=== PATIENT | female | born 1980 | race Caucasian/White ===

== ENCOUNTER 2017-08-16 12:49 | Emergency (ER) | payer MEDICAID ==
[~2017-08-16] VITALS: Ht 157.5 cm; Wt 64.5 kg
[~2017-08-16 12:49] MED LIST: ACET500C5 PO; BACTDS PO; CEPH-443 PO; HYDR-906 PO; HYDR25TA6 PO; IBUP-1542 PO
[2017-08-16 12:54] VITALS: Ht 157.5 cm; Wt 64.5 kg
[2017-08-16] MEDS ORDERED: ONDANSETRON (ODT) 4 MG TAB ODT STA (13:26)
[2017-08-16] MEDS ORDERED: LORAZEPAM 1 MG TAB PO ONE (14:00)
[2017-08-16] MEDS ORDERED: ONDA4TAB8 PO (14:34)
[2017-08-16] MEDS ORDERED: LISI10TA2 PO (14:37)
--- NOTE | 2017-08-16 14:41 | ERD ---
ER Documentation Chief Complaint Chief Complaint Complains of HTN HPI This is a 37 old female presents the emergency department today for concerns of high blood pressure, dizziness, heart palpitations, vomiting and diarrhea. Patient states this started this morning. States that in the past she took lisinopril when she was with her child as she had elevated blood pressure during . States that was in 2007 and has not taken pills for "a while". States that she took lisinopril at that time. Denies any chest pain or shortness of breath or abdominal pain, headache. ROS All systems reviewed and are negative except as per history of present illness. Medications Home Meds Active Scripts Lisinopril* (Lisinopril*) 10 Mg Tablet, 10 MG PO DAILY, #30 TAB Prov:BEE SMITH PA-C 08/16/17 Ondansetron Hcl* (Zofran*) 4 Mg Tablet, 4 MG PO Q6H for NAUSEA AND/OR VOMITING, #30 TAB Prov:BEE SMITH PA-C 08/16/17 Hydrochlorothiazide* (Hydrochlorothiazide*) 25 Mg Tab, 25 MG PO DAILY, #30 TAB Prov:CLARISA ARCHER MD 08/04/16 Cephalexin* (Keflex*) 500 Mg Capsule, 500 MG PO QID for 7 Days, CAP Prov:CLARISA ARCHER MD 08/04/16 Sulfamethoxazole-Trimethoprim* (Bactrim* DS) 800-160 Mg Tab, 1 TAB PO BID for 7 Days, TAB Prov:CLARISA ARCHER MD 08/04/16 Ibuprofen* (Motrin*) 600 Mg Tab, 600 MG PO Q8 for 10 Days, #30 TAB 0 Refills Prov:ZEN RIVERO PA-C 04/12/16 Hydrocodone Bit-Acetaminophen ([place]) 5-325 Mg Tablet, 1 TAB PO Q6 Y for PAIN for 7 Days, #7 TAB 0 Refills Prov:ZEN RIVERO PA-C 04/12/16 Acetaminophen* (Tylophen*) 500 Mg Capsule, 1 CAP PO Q6H Y for PAIN AND OR ELEVATED TEMP, #20 CAP Prov:GABI CERDA 08/04/15 Allergies Allergies: Coded Allergies: No Known Allergy (Unverified , 04/12/16) PMhx/Soc History of Surgery: Yes (C SECTION , APPENDECTOMY) Anesthesia Reaction: No Hx Neurological Disorder: No Hx Respiratory Disorders: No Hx Cardiac Disorders: Yes (HTN) Hx Psychiatric Problems: No Hx Miscellaneous Medical Probl: No Hx Alcohol Use: No Hx Substance Use: No Hx Tobacco Use: No Smoking Status: Never smoker Physical Exam Vitals Vital Signs Date Time Temp Pulse Resp B/P Pulse Ox O2 Delivery O2 Flow Rate FiO2 08/16/17 12:54 98.3 84 20 158/96 100 Physical Exam Const: NAD Head: Atraumatic Eyes: Normal Conjunctiva ENT: Normal External Ears, Nose and Mouth. Neck: Full range of motion..~ No meningismus. Resp: Clear to auscultation bilaterally Cardio: Regular rate and rhythm, no murmurs Abd: Soft, non tender, non distended. Normal bowel sounds Skin: No petechiae or rashes Back: No midline or flank tenderness Ext: No cyanosis, or edema Neur: Awake and alert Psych: Normal Mood and Affect Result Diagram: 08/16/17 1341 08/16/17 1341 Results 24 hrs Laboratory Tests Test 08/16/17 13:30 08/16/17 13:41 Urine Color YELLOW Urine Clarity SLIGHTLY CLOUDY Urine pH 9.0 Urine Specific [place] 1.014 Urine Ketones NEGATIVEmg/dL Urine Nitrite NEGATIVEmg/dL Urine Bilirubin NEGATIVEmg/dL Urine Urobilinogen NEGATIVEmg/dL Urine Leukocyte Esterase NEGATIVELeu/ul Urine Microscopic RBC 14/HPF Urine Microscopic WBC 3/HPF Urine Squamous Epithelial Cells FEW/HPF Urine Amorphous Crystals FEW/HPF Urine Hemoglobin 3+mg/dL Urine Glucose NEGATIVEmg/dL Urine Total Protein 1+mg/dl White Blood Count 7.910^3/ul Red Blood Count 4.7410^6/ul Hemoglobin 12.6g/dl Hematocrit 39.2% Mean Corpuscular Volume 82.7fl Mean Corpuscular Hemoglobin 26.6pg Mean Corpuscular Hemoglobin Concent 32.1g/dl Red Cell Distribution Width 12.9% Platelet Count 05772^3/UL Mean Platelet Volume 10.0fl Neutrophils % 76.2% Lymphocytes % 15.0% Monocytes % 7.3% Eosinophils % 0.9% Basophils % 0.3% Nucleated Red Blood Cells % 0.0/100WBC Neutrophils # 6.010^3/ul Lymphocytes # 1.210^3/ul Monocytes # 0.610^3/ul Eosinophils # 0.110^3/ul Basophils # 0.010^3/ul Nucleated Red Blood Cells # 0.010^3/ul Sodium Level 143mmol/L Potassium Level 4.1mmol/L Chloride Level 105mmol/L Carbon Dioxide Level 27mmol/L Anion Gap 15 Blood Urea Nitrogen 9mg/dl Creatinine 0.69mg/dl Glucose Level 99mg/dl Calcium Level 9.4mg/dl Total Bilirubin 0.8mg/dl Direct Bilirubin 0.00mg/dl Indirect Bilirubin 0.8mg/dl Aspartate Amino Transf (AST/SGOT) 27IU/L Alanine Aminotransferase (ALT/SGPT) 35IU/L Alkaline Phosphatase 74IU/L Total Protein 8.6g/dl Albumin 4.5g/dl Globulin 4.10g/dl Albumin/Globulin Ratio 1.09 Current Medications Medications (Trade) Dose Ordered Sig/Kendra Route PRN Reason Start Time Stop Time Status Last Admin Dose Admin Ondansetron HCl (Zofran Odt) 4 mg ONCE STAT ODT 08/16/17 13:26 08/16/17 13:28 DC 08/16/17 13:30 Lorazepam (Ativan) 1 mg ONCE ONCE PO 08/16/17 14:00 08/16/17 14:01 DC 08/16/17 13:49 Procedures/MDM This is a 37-year-old female who presents to the emergency department today with multiple complaints. Given patient's complaints and concerns I did obtain laboratory workup Laboratory workup shows no elevated white blood cell count. She is not anemic. Platelets are within normal limits. Electrolytes are within normal limits. Glucose is within normal limits. Liver enzymes are within normal limits. UA is negative for infection. test is negative. EKG read and interpreted by Dr. Drew. Rate [address] elevation. No QT prolongation. Sinus bradycardia. IPatient is afebrile and otherwise well-appearing. Her blood pressure at intake was mildly elevated at 158/96. I have low suspicion for hypertensive emergency or urgency. Patient denied any headache. I do not feel that she requires a head CT scan at this time. Low suspicion for acute hemorrhage, mass , abscess, meningitis. Low suspicion for anemia or hyperglycemia as a cause of dizziness or vomiting. Low suspicion for acute surgical abdomen. Patient was given Zofran and Ativan here in the emergency department as her multi-complaints and concerns of heart palpitations and dizziness appeared consistent with anxiety related symptoms as well. When I went to check back on the patient she reported feeling significantly better. I discussed the patient with Dr. Drew and he has recommended that the patient be discharged home with a prescription for lisinopril and Zofran. I will not send the patient home with any benzodiazepines at this time. I have explained her that she may follow back up with her primary care doctor and was given referral information for that. Patient understood At this time the patient is stable for discharge and outpatient management. Patient should follow up with their PCP in the next 1-2 days. They may return to the emergency department sooner for any persistent or worsening of symptoms. Patient understood and agreed with the plan. Departure Diagnosis: Primary Impression: Multiple complaints Patient Instructions: Your Body's Response to Anxiety, High Blood Pressure ( Hypertension), Diet, Vomiting Or Diarrhea [6Yr-Adult] [facility]errals[facility] Usted se delgado hecho un examen mdico de control que le indica que no est en barry condicin que requiera tratamiento urgente en el Departamento de Emergencia. Un estudio ms profundo y el tratamiento de chen condicin pueden esperar sin ningn riesgo hasta que usted sea atendida/o en el consultorio de chen mdico o barry cl jazmyn. Es responsabilidad suya arreglar barry delicia para el seguimiento del linda. MANEJO DE CONDICIONES NO URGENTES EN EL FUTURO 1) Si usted tiene un mdico de atencin primaria: Usted debera llamar a chen mdico de atencin primaria antes de venir al departamento de emergencia. Despus de las horas de consultorio, chen doctor o chen asociado/a est disponible por telfono. El mdico o enfermero de jeronimo en el servicio telefnico puede asesorarle por veronique medio para atender el problema, o linda contrario se puede programar barry delicia. 2) Si usted no tiene un mdico de atencin primaria: Llame al mdico o clnica de referencia que aparece abajo marcos las horas de consultorio para hacer barry delicia para que le vean. CLINICAS: [place] [address] [phone] [facility] [phone] [place] [address] [phone] [place] [address] [phone] [place] [address] [phone] [place] [id number] [phone] Additional Instructions: Llame al doctor MAANA y maida barry DELICIA PARA DENTRO DE 1-2 ALDANA.Dgale a la secretaria que nosotros le instruimos hacer esta delicia.Avise o llame si chen condicin se empeora antes de la delicia. Regresa aqui si peor o no mejor. Take Lisinopril as prescribed. Take Zofran for nausea or vomiting. Stay well- hydrated with plenty of clear fluids for vomiting and diarrhea. BEE SMITH PA-C Aug 16, 2017 14:41
--- NOTE | 2017-08-16 14:41 | ERD ---
ER Documentation Chief Complaint Chief Complaint Complains of HTN HPI This is a 37 old female presents the emergency department today for concerns of high blood pressure, dizziness, heart palpitations, vomiting and diarrhea. Patient states this started this morning. States that in the past she took lisinopril when she was with her child as she had elevated blood pressure during . States that was in 2007 and has not taken pills for "a while". States that she took lisinopril at that time. Denies any chest pain or shortness of breath or abdominal pain, headache. ROS All systems reviewed and are negative except as per history of present illness. Medications Home Meds Active Scripts Lisinopril* (Lisinopril*) 10 Mg Tablet, 10 MG PO DAILY, #30 TAB Prov:BEE SMITH PA-C 08/16/17 Ondansetron Hcl* (Zofran*) 4 Mg Tablet, 4 MG PO Q6H for NAUSEA AND/OR VOMITING, #30 TAB Prov:BEE SMITH PA-C 08/16/17 Hydrochlorothiazide* (Hydrochlorothiazide*) 25 Mg Tab, 25 MG PO DAILY, #30 TAB Prov:CLARISA ARCHER MD 08/04/16 Cephalexin* (Keflex*) 500 Mg Capsule, 500 MG PO QID for 7 Days, CAP Prov:CLARISA ARCHER MD 08/04/16 Sulfamethoxazole-Trimethoprim* (Bactrim* DS) 800-160 Mg Tab, 1 TAB PO BID for 7 Days, TAB Prov:CLARISA ARCHER MD 08/04/16 Ibuprofen* (Motrin*) 600 Mg Tab, 600 MG PO Q8 for 10 Days, #30 TAB 0 Refills Prov:ZEN RIVERO PA-C 04/12/16 Hydrocodone Bit-Acetaminophen ([place]) 5-325 Mg Tablet, 1 TAB PO Q6 Y for PAIN for 7 Days, #7 TAB 0 Refills Prov:ZEN RIVERO PA-C 04/12/16 Acetaminophen* (Tylophen*) 500 Mg Capsule, 1 CAP PO Q6H Y for PAIN AND OR ELEVATED TEMP, #20 CAP Prov:GABI CERDA 08/04/15 Allergies Allergies: Coded Allergies: No Known Allergy (Unverified , 04/12/16) PMhx/Soc History of Surgery: Yes (C SECTION , APPENDECTOMY) Anesthesia Reaction: No Hx Neurological Disorder: No Hx Respiratory Disorders: No Hx Cardiac Disorders: Yes (HTN) Hx Psychiatric Problems: No Hx Miscellaneous Medical Probl: No Hx Alcohol Use: No Hx Substance Use: No Hx Tobacco Use: No Smoking Status: Never smoker Physical Exam Vitals Vital Signs Date Time Temp Pulse Resp B/P Pulse Ox O2 Delivery O2 Flow Rate FiO2 08/16/17 12:54 98.3 84 20 158/96 100 Physical Exam Const: NAD Head: Atraumatic Eyes: Normal Conjunctiva ENT: Normal External Ears, Nose and Mouth. Neck: Full range of motion..~ No meningismus. Resp: Clear to auscultation bilaterally Cardio: Regular rate and rhythm, no murmurs Abd: Soft, non tender, non distended. Normal bowel sounds Skin: No petechiae or rashes Back: No midline or flank tenderness Ext: No cyanosis, or edema Neur: Awake and alert Psych: Normal Mood and Affect Result Diagram: 08/16/17 1341 08/16/17 1341 Results 24 hrs Laboratory Tests Test 08/16/17 13:30 08/16/17 13:41 Urine Color YELLOW Urine Clarity SLIGHTLY CLOUDY Urine pH 9.0 Urine Specific [place] 1.014 Urine Ketones NEGATIVEmg/dL Urine Nitrite NEGATIVEmg/dL Urine Bilirubin NEGATIVEmg/dL Urine Urobilinogen NEGATIVEmg/dL Urine Leukocyte Esterase NEGATIVELeu/ul Urine Microscopic RBC 14/HPF Urine Microscopic WBC 3/HPF Urine Squamous Epithelial Cells FEW/HPF Urine Amorphous Crystals FEW/HPF Urine Hemoglobin 3+mg/dL Urine Glucose NEGATIVEmg/dL Urine Total Protein 1+mg/dl White Blood Count 7.910^3/ul Red Blood Count 4.7410^6/ul Hemoglobin 12.6g/dl Hematocrit 39.2% Mean Corpuscular Volume 82.7fl Mean Corpuscular Hemoglobin 26.6pg Mean Corpuscular Hemoglobin Concent 32.1g/dl Red Cell Distribution Width 12.9% Platelet Count 83597^3/UL Mean Platelet Volume 10.0fl Neutrophils % 76.2% Lymphocytes % 15.0% Monocytes % 7.3% Eosinophils % 0.9% Basophils % 0.3% Nucleated Red Blood Cells % 0.0/100WBC Neutrophils # 6.010^3/ul Lymphocytes # 1.210^3/ul Monocytes # 0.610^3/ul Eosinophils # 0.110^3/ul Basophils # 0.010^3/ul Nucleated Red Blood Cells # 0.010^3/ul Sodium Level 143mmol/L Potassium Level 4.1mmol/L Chloride Level 105mmol/L Carbon Dioxide Level 27mmol/L Anion Gap 15 Blood Urea Nitrogen 9mg/dl Creatinine 0.69mg/dl Glucose Level 99mg/dl Calcium Level 9.4mg/dl Total Bilirubin 0.8mg/dl Direct Bilirubin 0.00mg/dl Indirect Bilirubin 0.8mg/dl Aspartate Amino Transf (AST/SGOT) 27IU/L Alanine Aminotransferase (ALT/SGPT) 35IU/L Alkaline Phosphatase 74IU/L Total Protein 8.6g/dl Albumin 4.5g/dl Globulin 4.10g/dl Albumin/Globulin Ratio 1.09 Current Medications Medications (Trade) Dose Ordered Sig/Kendra Route PRN Reason Start Time Stop Time Status Last Admin Dose Admin Ondansetron HCl (Zofran Odt) 4 mg ONCE STAT ODT 08/16/17 13:26 08/16/17 13:28 DC 08/16/17 13:30 Lorazepam (Ativan) 1 mg ONCE ONCE PO 08/16/17 14:00 08/16/17 14:01 DC 08/16/17 13:49 Procedures/MDM This is a 37-year-old female who presents to the emergency department today with multiple complaints. Given patient's complaints and concerns I did obtain laboratory workup Laboratory workup shows no elevated white blood cell count. She is not anemic. Platelets are within normal limits. Electrolytes are within normal limits. Glucose is within normal limits. Liver enzymes are within normal limits. UA is negative for infection. test is negative. EKG read and interpreted by Dr. Drew. Rate [address] elevation. No QT prolongation. Sinus bradycardia. IPatient is afebrile and otherwise well-appearing. Her blood pressure at intake was mildly elevated at 158/96. I have low suspicion for hypertensive emergency or urgency. Patient denied any headache. I do not feel that she requires a head CT scan at this time. Low suspicion for acute hemorrhage, mass , abscess, meningitis. Low suspicion for anemia or hyperglycemia as a cause of dizziness or vomiting. Low suspicion for acute surgical abdomen. Patient was given Zofran and Ativan here in the emergency department as her multi-complaints and concerns of heart palpitations and dizziness appeared consistent with anxiety related symptoms as well. When I went to check back on the patient she reported feeling significantly better. I discussed the patient with Dr. Drew and he has recommended that the patient be discharged home with a prescription for lisinopril and Zofran. I will not send the patient home with any benzodiazepines at this time. I have explained her that she may follow back up with her primary care doctor and was given referral information for that. Patient understood At this time the patient is stable for discharge and outpatient management. Patient should follow up with their PCP in the next 1-2 days. They may return to the emergency department sooner for any persistent or worsening of symptoms. Patient understood and agreed with the plan. Departure Diagnosis: Primary Impression: Multiple complaints Patient Instructions: Your Body's Response to Anxiety, High Blood Pressure ( Hypertension), Diet, Vomiting Or Diarrhea [6Yr-Adult] Referrals: [facility] Usted se delgado hecho un examen mdico de control que le indica que no est en abrry condicin que requiera tratamiento urgente en el Departamento de Emergencia. Un estudio ms profundo y el tratamiento de chen condicin pueden esperar sin ningn riesgo hasta que usted sea atendida/o en el consultorio de chen mdico o barry cl jazmyn. Es responsabilidad suya arreglar barry delicia para el seguimiento del linda. MANEJO DE CONDICIONES NO URGENTES EN EL FUTURO 1) Si usted tiene un mdico de atencin primaria: Usted debera llamar a chen mdico de atencin primaria antes de venir al departamento de emergencia. Despus de las horas de consultorio, chen doctor o chen asociado/a est disponible por telfono. El mdico o enfermero de jeronimo en el servicio telefnico puede asesorarle por veronique medio para atender el problema, o linda contrario se puede programar barry delicia. 2) Si usted no tiene un mdico de atencin primaria: Llame al mdico o clnica de referencia que aparece abajo marcos las horas de consultorio para hacer barry delicia para que le vean. CLINICAS: [place] [address] [phone] [facility] [phone] [place] [address] [phone] [place] [address] [phone] [place] [address] [phone] [place] [id number] [phone] Additional Instructions: Llame al doctor MAANA y maida barry DELICIA PARA DENTRO DE 1-2 ALDANA.Dgale a la secretaria que nosotros le instruimos hacer esta delicia.Avise o llame si chen condicin se empeora antes de la delicia. Regresa aqui si peor o no mejor. Take Lisinopril as prescribed. Take Zofran for nausea or vomiting. Stay well- hydrated with plenty of clear fluids for vomiting and diarrhea. BEE SMITH PA-C Aug 16, 2017 14:41
--- NOTE | 2017-08-16 14:41 | ERD ---
ER Documentation Chief Complaint Chief Complaint Complains of HTN HPI This is a 37 old female presents the emergency department today for concerns of high blood pressure, dizziness, heart palpitations, vomiting and diarrhea. Patient states this started this morning. States that in the past she took lisinopril when she was with her child as she had elevated blood pressure during . States that was in 2007 and has not taken pills for "a while". States that she took lisinopril at that time. Denies any chest pain or shortness of breath or abdominal pain, headache. ROS All systems reviewed and are negative except as per history of present illness. Medications Home Meds Active Scripts Lisinopril* (Lisinopril*) 10 Mg Tablet, 10 MG PO DAILY, #30 TAB Prov:BEE SMITH PA-C 08/16/17 Ondansetron Hcl* (Zofran*) 4 Mg Tablet, 4 MG PO Q6H for NAUSEA AND/OR VOMITING, #30 TAB Prov:BEE SMITH PA-C 08/16/17 Hydrochlorothiazide* (Hydrochlorothiazide*) 25 Mg Tab, 25 MG PO DAILY, #30 TAB Prov:CLARISA ARCHER MD 08/04/16 Cephalexin* (Keflex*) 500 Mg Capsule, 500 MG PO QID for 7 Days, CAP Prov:CLARISA ARCHER MD 08/04/16 Sulfamethoxazole-Trimethoprim* (Bactrim* DS) 800-160 Mg Tab, 1 TAB PO BID for 7 Days, TAB Prov:CLARISA ARCHER MD 08/04/16 Ibuprofen* (Motrin*) 600 Mg Tab, 600 MG PO Q8 for 10 Days, #30 TAB 0 Refills Prov:ZEN RIVERO PA-C 04/12/16 Hydrocodone Bit-Acetaminophen ([place]) 5-325 Mg Tablet, 1 TAB PO Q6 Y for PAIN for 7 Days, #7 TAB 0 Refills Prov:ZEN RIVERO PA-C 04/12/16 Acetaminophen* (Tylophen*) 500 Mg Capsule, 1 CAP PO Q6H Y for PAIN AND OR ELEVATED TEMP, #20 CAP Prov:GABI CERDA 08/04/15 Allergies Allergies: Coded Allergies: No Known Allergy (Unverified , 04/12/16) PMhx/Soc History of Surgery: Yes (C SECTION , APPENDECTOMY) Anesthesia Reaction: No Hx Neurological Disorder: No Hx Respiratory Disorders: No Hx Cardiac Disorders: Yes (HTN) Hx Psychiatric Problems: No Hx Miscellaneous Medical Probl: No Hx Alcohol Use: No Hx Substance Use: No Hx Tobacco Use: No Smoking Status: Never smoker Physical Exam Vitals Vital Signs Date Time Temp Pulse Resp B/P Pulse Ox O2 Delivery O2 Flow Rate FiO2 08/16/17 12:54 98.3 84 20 158/96 100 Physical Exam Const: NAD Head: Atraumatic Eyes: Normal Conjunctiva ENT: Normal External Ears, Nose and Mouth. Neck: Full range of motion..~ No meningismus. Resp: Clear to auscultation bilaterally Cardio: Regular rate and rhythm, no murmurs Abd: Soft, non tender, non distended. Normal bowel sounds Skin: No petechiae or rashes Back: No midline or flank tenderness Ext: No cyanosis, or edema Neur: Awake and alert Psych: Normal Mood and Affect Result Diagram: 08/16/17 1341 08/16/17 1341 Results 24 hrs Laboratory Tests Test 08/16/17 13:30 08/16/17 13:41 Urine Color YELLOW Urine Clarity SLIGHTLY CLOUDY Urine pH 9.0 Urine Specific [place] 1.014 Urine Ketones NEGATIVEmg/dL Urine Nitrite NEGATIVEmg/dL Urine Bilirubin NEGATIVEmg/dL Urine Urobilinogen NEGATIVEmg/dL Urine Leukocyte Esterase NEGATIVELeu/ul Urine Microscopic RBC 14/HPF Urine Microscopic WBC 3/HPF Urine Squamous Epithelial Cells FEW/HPF Urine Amorphous Crystals FEW/HPF Urine Hemoglobin 3+mg/dL Urine Glucose NEGATIVEmg/dL Urine Total Protein 1+mg/dl White Blood Count 7.910^3/ul Red Blood Count 4.7410^6/ul Hemoglobin 12.6g/dl Hematocrit 39.2% Mean Corpuscular Volume 82.7fl Mean Corpuscular Hemoglobin 26.6pg Mean Corpuscular Hemoglobin Concent 32.1g/dl Red Cell Distribution Width 12.9% Platelet Count 67603^3/UL Mean Platelet Volume 10.0fl Neutrophils % 76.2% Lymphocytes % 15.0% Monocytes % 7.3% Eosinophils % 0.9% Basophils % 0.3% Nucleated Red Blood Cells % 0.0/100WBC Neutrophils # 6.010^3/ul Lymphocytes # 1.210^3/ul Monocytes # 0.610^3/ul Eosinophils # 0.110^3/ul Basophils # 0.010^3/ul Nucleated Red Blood Cells # 0.010^3/ul Sodium Level 143mmol/L Potassium Level 4.1mmol/L Chloride Level 105mmol/L Carbon Dioxide Level 27mmol/L Anion Gap 15 Blood Urea Nitrogen 9mg/dl Creatinine 0.69mg/dl Glucose Level 99mg/dl Calcium Level 9.4mg/dl Total Bilirubin 0.8mg/dl Direct Bilirubin 0.00mg/dl Indirect Bilirubin 0.8mg/dl Aspartate Amino Transf (AST/SGOT) 27IU/L Alanine Aminotransferase (ALT/SGPT) 35IU/L Alkaline Phosphatase 74IU/L Total Protein 8.6g/dl Albumin 4.5g/dl Globulin 4.10g/dl Albumin/Globulin Ratio 1.09 Current Medications Medications (Trade) Dose Ordered Sig/Kendra Route PRN Reason Start Time Stop Time Status Last Admin Dose Admin Ondansetron HCl (Zofran Odt) 4 mg ONCE STAT ODT 08/16/17 13:26 08/16/17 13:28 DC 08/16/17 13:30 Lorazepam (Ativan) 1 mg ONCE ONCE PO 08/16/17 14:00 08/16/17 14:01 DC 08/16/17 13:49 Procedures/MDM This is a 37-year-old female who presents to the emergency department today with multiple complaints. Given patient's complaints and concerns I did obtain laboratory workup Laboratory workup shows no elevated white blood cell count. She is not anemic. Platelets are within normal limits. Electrolytes are within normal limits. Glucose is within normal limits. Liver enzymes are within normal limits. UA is negative for infection. test is negative. EKG read and interpreted by Dr. Drew. Rate [address] elevation. No QT prolongation. Sinus bradycardia. IPatient is afebrile and otherwise well-appearing. Her blood pressure at intake was mildly elevated at 158/96. I have low suspicion for hypertensive emergency or urgency. Patient denied any headache. I do not feel that she requires a head CT scan at this time. Low suspicion for acute hemorrhage, mass , abscess, meningitis. Low suspicion for anemia or hyperglycemia as a cause of dizziness or vomiting. Low suspicion for acute surgical abdomen. Patient was given Zofran and Ativan here in the emergency department as her multi-complaints and concerns of heart palpitations and dizziness appeared consistent with anxiety related symptoms as well. When I went to check back on the patient she reported feeling significantly better. I discussed the patient with Dr. Drew and he has recommended that the patient be discharged home with a prescription for lisinopril and Zofran. I will not send the patient home with any benzodiazepines at this time. I have explained her that she may follow back up with her primary care doctor and was given referral information for that. Patient understood At this time the patient is stable for discharge and outpatient management. Patient should follow up with their PCP in the next 1-2 days. They may return to the emergency department sooner for any persistent or worsening of symptoms. Patient understood and agreed with the plan. Departure Diagnosis: Primary Impression: Multiple complaints Patient Instructions: Your Body's Response to Anxiety, High Blood Pressure ( Hypertension), Diet, Vomiting Or Diarrhea [6Yr-Adult] [facility]errals: [facility] Usted se delgado hecho un examen mdico de control que le indica que no est en barry condicin que requiera tratamiento urgente en el Departamento de Emergencia. Un estudio ms profundo y el tratamiento de chen condicin pueden esperar sin ningn riesgo hasta que usted sea atendida/o en el consultorio de chen mdico o barry cl jazmyn. Es responsabilidad suya arreglar barry delicia para el seguimiento del linda. MANEJO DE CONDICIONES NO URGENTES EN EL FUTURO 1) Si usted tiene un mdico de atencin primaria: Usted debera llamar a chen mdico de atencin primaria antes de venir al departamento de emergencia. Despus de las horas de consultorio, chen doctor o chen asociado/a est disponible por telfono. El mdico o enfermero de jeronimo en el servicio telefnico puede asesorarle por veronique medio para atender el problema, o linda contrario se puede programar barry delicia. 2) Si usted no tiene un mdico de atencin primaria: Llame al mdico o clnica de referencia que aparece abajo marcos las horas de consultorio para hacer barry delicia para que le vean. CLINICAS: [place] [address] [phone] [facility] [phone] [place] [address] [phone] [place] [address] [phone] [place] [id number] [phone] [place] [id number] [phone] Additional Instructions: Llame al doctor MAANA y maida barry DELICIA PARA DENTRO DE 1-2 ALDANA.Dgale a la secretaria que nosotros le instruimos hacer esta delicia.Avise o llame si chen condicin se empeora antes de la delicia. Regresa aqui si peor o no mejor. Take Lisinopril as prescribed. Take Zofran for nausea or vomiting. Stay well- hydrated with plenty of clear fluids for vomiting and diarrhea. BEE SMITH PA-C Aug 16, 2017 14:41
[2017-08-16 14:52] VITALS: BP 128/81; PULSE 66; RESP 19
== END 2017-08-16 14:54 | disposition home or self-care (01) ==
LOC: FTE 12:49
DX: R42 Dizziness and giddiness (principal); R00.2 Palpitations; R11.10 Vomiting, unspecified; R19.7 Diarrhea, unspecified; I10 Essential (primary) hypertension
CPT/HCPCS: 80053; 81001; 85025; 93005; Z7502; Z7610

== ENCOUNTER 2017-10-07 14:19 | Day surgery (SDC) | payer MEDICAID ==
[~2017-10-07 14:19] MED LIST changes: +LISI10TA2 PO; +ONDA4TAB8 PO
[2017-10-08] MEDS ORDERED: LISI20TA11 PO (10:15)
== END 2017-10-07 15:00 | disposition home or self-care (01) ==
LOC: SDS 14:19
PROVIDERS: ATTEND Obstetrics & Gynecology
DX: Z30.2 Encounter for sterilization (principal); Z53.9 Procedure and treatment not carried out, unspecified reason
CPT/HCPCS: 84703

== ENCOUNTER 2017-10-08 09:57 | Day surgery (SDC) | payer MEDICAID ==
[2017-10-08] VITALS (14 sets, daily range): BP systolic 112–147; BP diastolic 74–85; PULSE 64–87; RESP 14–20; Ht 152.4 cm; Wt 64.2 kg
[~2017-10-08] VITALS: Ht 152.4 cm; Wt 64.2 kg
[2017-10-08] MEDS ORDERED: LISI20TA11 PO (10:15)
[2017-10-08] MEDS ORDERED: LACTATED RINGER'S 1,000 ML IV SCH (11:00)
[2017-10-08 11:02] LABS: WHITE BLOOD COUNT 6.1 10^3/ul (4.8-10.8)
[2017-10-08 11:03] LABS: BASOPHILS % 0.3 % (0.0-2.0); EOSINOPHILS # 0.1 10^3/ul (0.0-0.5); EOSINOPHILS % 1.5 % (0.0-7.0); HEMATOCRIT 39.8 % (37.0-47.0); HEMOGLOBIN 13.2 g/dl (12.0-16.0); LYMPHOCYTES # 1.7 10^3/ul (0.8-2.9); LYMPHOCYTES % 27.3 % (15.0-51.0); MEAN CORPUSCULAR HEMOGLOBIN 27.3 pg (29.0-33.0); MEAN CORPUSCULAR HGB CONC 33.2 g/dl (32.0-37.0); MEAN CORPUSCULAR VOLUME 82.4 fl (82.0-101.0); MEAN PLATELET VOLUME 10.1 fl (7.4-10.4); MONOCYTE # 0.6 10^3/ul (0.3-0.9); MONOCYTES % 10.2 % (0.0-11.0); NEUTROPHIL # 3.6 10^3/ul (1.6-7.5); PLATELET COUNT 213 10^3/UL (140-415); RED BLOOD COUNT 4.83 10^6/ul (4.20-5.40); RED CELL DISTRIBUTION WIDTH 12.3 % (11.5-14.5)
[2017-10-08] MEDS ORDERED: hydrALAzine 20 MG INJ IV PRN (12:30)
[2017-10-08] MEDS ORDERED: PROCHLORPERAZINE 10 MG INJ IV PRN (12:30)
[2017-10-08] MEDS ORDERED: DIPHENHYDRAMINE 50 MG INJ IV PRN (12:30)
[2017-10-08] MEDS ORDERED: ONDANSETRON 4 MG INJ IV PRN (12:30)
[2017-10-08] MEDS ORDERED: OXYCODONE/ACETAMINOPHEN (5/325) TAB PO PRN (12:30)
[2017-10-08] MEDS ORDERED: FENTAnyl 50 MCG/ML VIAL IV PRN ×3 (12:30)
[2017-10-08] MEDS ORDERED: MEPERIDINE 25 MG INJ IV PRN (12:30)
[2017-10-08] MEDS ORDERED: HYDROmorphONE (0.2 MG/ML) 10ML SYG IV PRN ×3 (12:30)
[2017-10-08] MEDS ORDERED: LABETALOL HCL 20MG INJ IV PRN (12:30)
--- NOTE | 2017-10-08 13:05 | HP ---
Date/Time of Note Date/Time of Note DATE: 10/08/17 TIME: 13:02 Assessment/Plan VTE Prophylaxis VTE Prophylaxis Intervention: ambulation Lines/Catheters IV Catheter Type (from Nrs): Peripheral IV Assessment/Plan Assessment/Plan multiparity with sterilization will do laparoscopic vs mini lap BTL HPI/ROS Admit Date/Time Admit Date/Time 10/08/2017 Hx of Present Illness 37 y/o female for sterilization procedure ROS S/P 2 X C/S Constitutional: improved, no complaints Eyes: no complaints ENT: no complaints Respiratory: no complaints Cardiovascular: no complaints Gastrointestinal: no complaints Genitourinary: no complaints Musculoskeletal: no complaints Skin: no complaints Neurologic: no complaints Endocrine: no complaints Lymphatic: no complaints Psychological: nl mood/affect, no complaints Immunologic: no complaints PMH/Family/Social Past Medical History Medical History: hypertension (on Deacon inhibitor ) Past Surgical History Past Surgical Hx: other (previous C/S X 2 ) Family History Significant Family History: no pertinent family hx Social History Alcohol Use: none Smoking Status: Never smoker Drug Use: none Exam/Review of Systems Vital Signs Vitals Vital Signs Date Time Temp Pulse Resp B/P Pulse Ox O2 Delivery O2 Flow Rate FiO2 10/08/17 11:09 98.1 64 16 112/75 99 Room Air Exam Constitutional: alert, oriented, well developed Psych: nl mood/affect, no complaints Head: atraumatic, normocephalic Eyes: EOMI, PERRL, nl conjunctiva, nl lids, nl sclera ENMT: nl external ears & nose, nl lips & teeth, nl nasal mucosa & septum Neck: non-tender, supple Respiratory: clear to auscultation, normal air movement Cardiovascular: nl pulses, regular rate and rhythm Gastrointestinal: nl liver, spleen, non-tender, soft Musculoskeletal: nl extremities to inspection Extremities: normal pulses Neurological: MINE BOSS II-XII intact, nl mental status, nl speech, nl strength Skin: nl turgor, No rash or lesions Lymph: nl lymph nodes Labs Result Diagram: 10/08/17 1030 Medications Medications Current Medications Lactated Ringer's (Lr) 1,000 ml @ 0 mls/hr Q0M IV ; Start 10/08/17 at 11:00 JIE EDWARDS MD Oct 08, 2017 13:05
[2017-10-08] MEDS ORDERED: MIDAZOLAM 1 MG/ML 2 ML INJ ONE (13:14)
[2017-10-08] MEDS ORDERED: LIDOCAINE 2% (SDV) 5 ML INJ ONE (13:14)
[2017-10-08] MEDS ORDERED: FENTAnyl 50 MCG/ML VIAL ONE (13:14)
[2017-10-08] MEDS ORDERED: PROPOFOL 20 ML ONE (13:14)
[2017-10-08] MEDS ORDERED: EPHEDrine SULFATE 50 MG/5 ML SYG ONE (13:29)
[2017-10-08] MEDS ORDERED: CEFAZOLIN 1 GM INJ ONE (13:30)
[2017-10-08] MEDS ORDERED: ONDANSETRON 4 MG INJ ONE (13:36)
[2017-10-08] MEDS ORDERED: DEXAMETHASONE 4 MG/ML 1 ML INJ ONE (13:36)
[2017-10-08] MEDS ORDERED: FAMOTIDINE 20 MG INJ ONE (13:36)
[2017-10-08] MEDS ORDERED: BUPIVACAINE 0.25%/EPI (SDV) 30 ML INJ ONE (13:43)
[2017-10-08] MEDS ORDERED: SUGAMMADEX SODIUM 200 MG/2 ML VIAL IV ONE (13:57)
--- NOTE | 2017-10-08 14:17 | OPR ---
Operative Report Planned Procedure Procedure date Oct 08, 2017 Procedure(s) Bilateral tubal fulguration via laparoscopy Performed by see signature line Sales Mgr none Anesthesiologist: SUJATA HATHAWAY MD Pre-procedure diagnosis Multiparity with desire for sterilization Anesthesia Type: general Post-Procedure Post-procedure diagnosis Status post bilateral tubal fulguration Findings Normal right and left fallopian tubes and ovaries Estimated Blood Loss: minimal Specimen(s) none Grafts/Implant(s) none Complication(s) none Pt Condition post procedure: stable Disposition: PACU Procedure Description The patient was placed on the OR table in the supine position. General anesthesia was induced. The patient was turned into lithotomy position for vaginal and laparoscopic procedure specifically. Perineal, vaginal, and abdominal area were then prepped with Betadine and draped for a usual laparoscopic procedure and a vaginal procedure. A Dejesus catheter was then inserted into urinary bladder under aseptic condition in operating room and under satisfactory anesthesia, a small speculum was inserted into vagina. Anterior lip of the cervix was secured with a tenaculum. Cervix was brought down to operative field. It was progressively dilated to #6 [place]. A HUMI elevator was inserted into cervical canal and afterwards uterine cavity. After insufflation of the tube all the other instruments were removed from vaginal cavity. After changing gloves, turning to abdominal side, a small incision was placed just below belly button 0.5 cm in length. A 0.5 cm trocar was introduced inside the incision. The trocar was blunt and pointing toward the uterine dome. The trocar was easily inserted inside the abdominal. A laparoscope was then inserted into the abdominal cavity, making sure the correct cavity was entered. Intra-abdominal cavity was insufflated with CO2. Under direct visualization a small incision was made a 0.5 cm in length about 2 to 3 fingerbreadths above and parallel to the symphysis pubis. A 0.5 cm trocar was then introduced inside the incision. Under direct visualization the second probe was also inserted into abdominal cavity easily. The uterus and fallopian tubes were easily identified. Right fallopian tube was approached first and at least 5 cm of the tube was adequately fulgurated, making sure no live tissue was left in between. The same procedure was done on the left side. Serious care was taken to avoid bowel, bladder, or other intra-abdominal organ injury. At this point, procedure was terminated. The trocar incision sites from inside the abdomen on either side were observed. No bleeding was observed. After removing the laparoscope, the abdomen was desufflated to its normal position. Afterwards, all of the trocar sleeves were removed. Abdominal incisions were closed using chano. The HUMI was then discontinued. Also, Dejesus was taken out. The patient was returned to supine position. Estimated blood loss was less than 5 mL. The patient tolerated the procedure very well and was transferred to postanesthesia recovery room in stable and good condition. JIE EDWARDS MD Oct 08, 2017 14:17
[2017-10-08] MEDS ORDERED: KETOROLAC 60 MG INJ IM STA (14:22)
[2017-10-08] MEDS ORDERED: BUTORPHANOL 2 MG INJ IM ONE (14:30)
[2017-10-08] MEDS ORDERED: DOXYCYCLINE 100 MG TAB PO ONE ×2 (14:30)
[2017-10-08] MEDS ORDERED: KETOROLAC 30 MG INJ ONE (14:31)
== END 2017-10-08 15:57 | disposition home or self-care (01) ==
LOC: SDS 09:57
PROVIDERS: ATTEND Obstetrics & Gynecology
DX: Z30.2 Encounter for sterilization (principal); I10 Essential (primary) hypertension
CPT/HCPCS: 58670; 85025; J0595; J1100; J1170; J1885; J2250; J2405; J3010; Z7610; 84703; J0690